=== PATIENT | male | born 1995 | race Caucasian/White ===

== ENCOUNTER 2024-08-14 12:53 | Emergency (ER) | payer MEDICAID ==
[~2024-08-14] VITALS: Ht 167.6 cm; Wt 72.0 kg
[2024-08-14 13:09] VITALS: O2SAT 100
[2024-08-14 14:02] LABS: CLARITY URINE CLEAR (CLEAR); COLOR URINE YELLOW (YELLOW); GLUCOSE URINE NEGATIVE (NEGATIVE); KETONES URINE 2+ (NEGATIVE); LEUKOCYTE ESTERASE URINE NEGATIVE (NEGATIVE); NITRITE URINE NEGATIVE (NEGATIVE); OCCULT BLOOD URINE TRACE (NEGATIVE); PH URINE 6.5 (4.5-8.0); PROTEIN URINE 2+ (NEGATIVE); SPECIFIC GRAVITY URINE 1.028 (1.005-1.030); UROBILINOGEN URINE 0.2 E.U./dL (0.2-1.0)
[2024-08-14 14:20] LABS: MUCUS URINE TRACE /lpf (NONE/TRACE); SQUAMOUS EPITHELIAL CELL URINE NONE SEEN /lpf (RARE/1+)
[2024-08-14 14:21] LABS: BACTERIA URINE 1+; WBC URINE 0-2 /hpf (0-2)
[2024-08-14 14:48] LABS: CHLORIDE 102 mEq/L (98-107); POTASSIUM 4.2 mEq/L (3.5-5.1); SODIUM 137 mEq/L (136-145)
[2024-08-14 14:49] LABS: CARBON DIOXIDE 26 mEq/L (21-32)
[2024-08-14 14:50] LABS: CALCIUM 10.4 mg/dL (8.7-10.4); HEMATOCRIT. 43.4 % (42.0-52.0); HEMOGLOBIN. 14.1 g/dL (14.0-18.0); MEAN CORPUSCULAR HEMOGLOBIN 29.3 pg (28.0-32.0); MEAN CORPUSCULAR HGB CONC 32.5 g/dL (31.0-37.0); MEAN CORPUSCULAR VOLUME 90.1 fL (80.0-94.0); MEAN PLATELET VOLUME 8.5 fl (7.4-10.4); PLATELET 274 x1000/uL (130-400); RED BLOOD CELL COUNT 4.82 mill/uL (4.7-6.1); RED CELL DISTRIBUTION WIDTH 14.6 % (11.6-14.6); WHITE BLOOD COUNT 14.4 x1000/uL (4.5-11.0)
[2024-08-14 14:55] LABS: DIFFERENTIAL COMMENT 1
[2024-08-14 15:11] LABS: CREATININE 1.1 mg/dL (0.6-1.3); GLUCOSE 98 mg/dL (70-105); UREA NITROGEN BLOOD 16 mg/dL (9-23)
[2024-08-14 15:28] LABS: PLATELET ESTIMATE NORMAL
[2024-08-15] MEDS: IBUPROFEN 600MG TABLET PO ONE (00:25)
[2024-08-15] MEDS ORDERED: IBUP-2029 MT (00:53)
[2024-08-15] MEDS ORDERED: ONDA-239 PO (00:53)
[2024-08-15] MEDS ORDERED: HYDR-4001 MT (00:53)
[2024-08-15 01:52] VITALS: BP 135/76; PULSE 69; RESP 18; TEMP 36.89184; O2SAT 100
== END 2024-08-15 01:57 | disposition home or self-care (01) ==
LOC: ER 14:23
DX: N13.2 Hydronephrosis with renal and ureteral calculous obstruction (principal)
CPT/HCPCS: 36415; 74176; 80048; 81003; 85025; 99284